=== PATIENT | male | born 1970 | race Caucasian/White ===

== ENCOUNTER 2016-11-22 10:30 | Emergency (ER) | payer BC ==
[2016-11-22] MEDS ORDERED: SODIUM CHLORIDE FLUSH 0.9% 10 ML SYRINGE IVP ONE (11:01)
[2016-11-22] MEDS ORDERED: KETOROLAC 60 MG/2 ML VIAL IVP STA (12:29)
[2016-11-22] MEDS ORDERED: ONDANSETRON 4 MG/2 ML VIAL IVP STA ×2 (12:29→13:36)
[2016-11-22] MEDS ORDERED: SODIUM CHLORIDE 0.9% 1,000 ML IV ONE (12:30)
[2016-11-22 12:31] LABS: BILIRUBIN,URINE NEGATIVE (NEGATIVE)
--- NOTE | 2016-11-22 12:31 | ED Physician Documentation ---
PD HPI ABD PAIN - Stated complaint Stated Complaint: ABD PX - Chief complaint Chief Complaint: Abd Pain - History obtained from History obtained from: Patient, Family - History of Present Illness Timing - onset: Enter time (1899), Last night Timing - duration: Hours Timing - details: Abrupt onset, Still present Quality: Aching, Sharp, Pain Location: RLQ Radiation: Right flank Improved by: Other (nothing) Worsened by: Other (nothing) Associated symptoms: Nausea, Vomiting Similar symptoms before: No diagnosis (symptoms resolved 2 weeks ago.) Recently seen: Not recently seen - Additional information Additional information: 46-year-old male developed acute right lower quadrant pain radiating to his flank yesterday evening. He spent most of the night awake with pain. He has had some nausea and vomiting with the peak of his pain. He has not had fever or chills. He did have an episode similar to this about 2 weeks ago lasted about 2 hours. He has not had pain like this otherwise. He does have a family history of kidney stone. He notes that there were no modifying factors to the pain. Review of Systems Constitutional: denies: Fever Eyes: denies: Decreased vision Ears: denies: Ear pain Nose: denies: Congestion Throat: denies: Sore throat Respiratory: denies: Cough GI: reports: Abdominal Pain, Nausea, Vomiting. denies: Constipation, Diarrhea : denies: Dysuria, Frequency Musculoskeletal: reports: Back pain. denies: Neck pain Neurologic: denies: Generalized weakness, Focal weakness, Numbness PD PAST MEDICAL HISTORY - Past Medical History Past Medical History: No - Past Surgical History Past Surgical History: No - Present Medications Home Medications: Ambulatory Orders Medication Instructions Recorded Confirmed Levothyroxine [Synthroid] 75 mcg PO QDAC 11/22/16 11/22/16 - Allergies Allergies/Adverse Reactions: Allergies Allergy/AdvReac Type Severity Reaction Status Date / Time No Known Drug Allergies Allergy Verified 11/22/16 10:34 - Social History Does the pt smoke?: No Smoking Status: Never smoker PD ED PE NORMAL - Vitals Vital signs reviewed: Yes (Hypertensive) - General General: Alert and oriented X 3, Well developed/nourished, Other - HEENT HEENT: Atraumatic (The patient appears to be in pain with seam sewer tone and flattened affect.), PERRL, EOMI - Neck Neck: Supple, no meningeal sign - Cardiac Cardiac: RRR, No murmur - Respiratory Respiratory: No respiratory distress, Clear bilaterally - Abdomen Abdomen: Soft, Non tender - Back Back: No CVA TTP, No spinal TTP - Derm Derm: Normal color, Warm and dry, No rash - Extremities Extremities: No deformity, No edema - Neuro Neuro: Alert and oriented X 3, No motor deficit, No sensory deficit, Normal speech - Psych Psych: Normal mood, Normal affect Results - Vitals Vitals: Vital Signs - 24 hr 11/22/16 11/22/16 11/22/16 10:31 11:55 13:44 Temperature 36.7 C Heart Rate 55 L 50 L 60 Respiratory 15 18 16 Rate Blood Pressure 163/95 H 170/90 H 152/99 H O2 Saturation 97 11/22/16 15:31 Temperature Heart Rate 52 L Respiratory 16 Rate Blood Pressure 148/88 H O2 Saturation Oxygen O2 Source Room air - Labs Labs: Laboratory Tests 11/22/16 11/22/16 11/22/16 11:06 11:06 12:20 WBC 14.9 H RBC 4.98 Hgb 14.9 Hct 44.2 MCV 88.8 MCH 29.8 MCHC 33.6 RDW 13.1 Plt Count 241 MPV 8.2 Neut # 12.6 H Lymph # 0.8 L [place] # 1.4 H Eos # 0.0 Baso # 0.0 Absolute Nucleated RBC 0.00 Nucleated RBCs 0.0 Sodium 134 L Potassium 3.5 Chloride 100 L Carbon Dioxide 24 Anion Gap 10.0 BUN 21 H Creatinine 1.1 Estimated GFR (MDRD) 72 L Glucose 109 H Calcium 9.0 Total Bilirubin 1.1 H AST 51 H ALT 35 Alkaline Phosphatase 51 Total Protein 7.3 Albumin 4.3 Globulin 3.0 Albumin/Globulin Ratio 1.4 Lipase 48 Urine Color YELLOW Urine Clarity CLEAR Urine pH 6.0 Ur Specific [place] >=1.030 H Urine Protein 30 H Urine Glucose (UA) NEGATIVE Urine Ketones >=80 H Urine Occult Blood TRACE-INTA Urine Nitrite NEGATIVE Urine Bilirubin NEGATIVE Urine Urobilinogen 0.2 (NORMAL) Ur Leukocyte Esterase NEGATIVE Urine RBC 0-5 Urine WBC 0-3 Ur Squamous Epith Cells FEW Squamous Urine Bacteria None Seen Ur Microscopic Review INDICATED Urine Culture Comments NOT INDICATED - Rads (name of study) CT abdomen pelvis without Radiology: Prelim report reviewed (Impression: No evidence of an obstructing renal calculus. Normal CT of the appendix. Low density lesions in the liver that most likely represents a cyst or hemangiomas. Probable benign fibro- osseous lesion in the right proximal femur.), EMP read indepedently, See rad report Procedures - Bedside sono Bedside sono by EMP: With use of bedside ultrasound the right kidney is imaged there is evidence of mild hydronephrosis in the kidney is sonographically nontender. PD MEDICAL DECISION MAKING - ED course Complexity details: reviewed results, re-evaluated patient, considered differential, d/w patient, d/w family ED course: 46-year-old male with acute right lower quadrant pain radiating to his flank has no modifying factors to his pain his pain quality and quantity appear consistent with renal lithiasis. He did have some subtle hydronephrosis on his bedside ultrasound exam. He is administered IV saline and Toradol and has resolution of his pain. He does note that his pain was mostly resolved by the time he had his CT scan. His CT scan did not demonstrate any evidence of stone. I suspect he has passed his stone and the patient is quite comfortable now in the room. I discussed with the patient the natural history of kidney stone and I feel satisfied that we have explored causes of this patient's pain and none exist that are life-threatening Departure - Departure Disposition: 01 Home, Self Care Clinical Impression: Renal colic Condition: Stable Instructions: ED Stone Renal Passed Follow-Up: [facility] [Provider Group] [facility] [Provider Group] Discharge Date/Time: 11/22/16 15:34
[2016-11-22 12:33] LABS: UA w/ MICROSCOPIC CHARGE YES
[2016-11-22 12:36] LABS: BASOPHILS % (AUTO) 0.2 %; HCT - HEMATOCRIT 44.2 % (42.0-52.0); HGB - HEMOGLOBIN 14.9 g/dL (14.0-18.0); LYMPHOCYTES # (AUTO) 0.8 10^3/uL (1.5-3.5); LYMPHOCYTES % (AUTO) 5.6 %; MEAN CORPUSCULAR HEMOGLOBIN 29.8 pg (27.0-31.0); MEAN CORPUSCULAR HGB CONC 33.6 g/dL (32.0-36.0); MEAN CORPUSCULAR VOLUME 88.8 fL (80.0-94.0); MEAN PLATELET VOLUME 8.2 fL (7.4-11.4); MONOCYTES # (AUTO) 1.4 10^3/uL (0.0-1.0); MONOCYTES % (AUTO) 9.3 %; NEUTROPHILS # (AUTO) 12.6 10^3/uL (1.5-6.6); NEUTROPHILS % (AUTO) 84.9 %; RED BLOOD COUNT 4.98 10^6/uL (4.70-6.10); RED CELL DISTRIBUTION WIDTH 13.1 % (12.0-15.0); UNCORRECTED WHITE BLOOD COUNT 14.9 x10^3/uL; WHITE BLOOD COUNT 14.9 x10^3/uL (4.8-10.8)
[2016-11-22] MEDS ORDERED: ONDANSETRON 4 MG/2 ML VIAL ONE ×2 (12:37→13:43)
[2016-11-22] MEDS ORDERED: KETOROLAC 30 MG/ML VIAL ONE (12:37)
[2016-11-22 12:47] LABS: ALBUMIN/GLOBULIN RATIO 1.4 (1.0-2.2); BILIRUBIN,TOTAL 1.1 mg/dL (0.2-1.0); CREATININE 1.1 mg/dL (0.6-1.2); POTASSIUM 3.5 mmol/L (3.5-5.0); TOTAL PROTEIN 7.3 g/dL (6.7-8.2)
[2016-11-22 12:53] LABS: UR CULTURE IF IND NOT INDICATED; WBC,URINE 0-3 /HPF (0-3)
--- NOTE | 2016-11-22 13:48 | CT Preliminary Report ---
Exam: CT Abdomen/Pelvis W/O IMPRESSION: No evidence of an obstructing renal calculus. Normal CT of the appendix. Low-density lesions in the liver that most likely represents a cyst or hemangiomas. Probable benign fibro-osseous lesion in the right proximal femur. [facility] SITE ID: [id number]
--- NOTE | 2016-11-22 13:50 | CT Report ---
EXAM: CT ABDOMEN AND PELVIS (CT KUB) EXAM DATE: 11/22/2016 12:57 PM. CLINICAL HISTORY: RLQ pain to right flank. COMPARISONS: None. TECHNIQUE: Routine axial helical CT imaging was performed through the abdomen and pelvis without IV c ontrast. Reconstructions: Coronal and sagittal. In accordance with CT protocol optimization, one or more of the following dose reduction techniques w ere utilized for this exam: automated exposure control, adjustment of mA and/or KV based on patient s ize, or use of iterative reconstructive technique. FINDINGS: Lung Bases: The lung bases are without evidence of a mass or infiltrate. Solid Organs: At least 5 low density lesions are seen within the liver. The largest is in segment 3 ( image 27 series 3). It measures 1.1 cm. These most likely represent cysts or hemangiomas. The spleen, pancreas, and adrenal glands are normal in appearance. Kidneys are without evidence of hy dronephrosis, hydroureter or nephrolithiasis. No bladder calculi are identified. Peritoneal Cavity: The appendix is normal in appearance. There are no dilated loops of bowel to sugge st the presence of an obstruction. There is no evidence of diverticulosis or diverticulitis Pelvic Organs: Calcifications are seen within the pelvis that most likely represent phleboliths. No b ladder calculi are identified. No mass or cyst is seen within the pelvis. Vasculature: There is no evidence of an abdominal aortic aneurysm. Other: There is a focal sclerotic lesion in the right proximal femur at the level of the intertrochan teric region. It measures 10 x 6 mm (image 40 of series 5 and image 82 series 3). This most likely re presents a benign fibro-osseous lesion. IMPRESSION: No evidence of an obstructing renal calculus. Normal CT of the appendix. Low-density lesions in the liver that most likely represents a cyst or hemangiomas. Probable benign fibro-osseous lesion in the right proximal femur. [facility] Referring Provider Line: [phone] SITE ID: [id number]
[2016-11-22 15:32] VITALS: BP 148/88
== END 2016-11-22 15:34 | disposition home or self-care (01) ==
LOC: ED 10:30
DX: N23 Unspecified renal colic (principal); Z84.1 Family history of disorders of kidney and ureter
CPT/HCPCS: 36415; 74176; 80053; 81001; 81003; 83690; 85025; 87086; 96374; 96375; 96376; 99284

== ENCOUNTER 2021-10-27 11:17 | Outpatient (CLI) | payer BC ==
--- NOTE | 2021-10-27 15:32 | XRAY Report ---
PROCEDURE: Lumbar Spine 2 View INDICATIONS: LOW BACK PAIN TECHNIQUE: 3 views of the lumbar spine were acquired. COMPARISON: None. FINDINGS: Bones: 5 [id number] vertebrae are present. There is normal bony alignment. Degenerative endplat e changes at L5-S1 level is seen. No vertebral body compression fractures. No suspicious bony lesio ns. Soft tissues: Overlying bowel gas pattern is normal. No suspicious soft tissue calcifications. IMPRESSION: Degenerative disc disease at L5-S1 level. No acute compression fracture or spondylolisth esis. Reviewed by: Sushant Gómez MD on 10/27/2021 3:31 PM PDT Approved by: Sushant Gómez MD on 10/27/2021 3:31 PM PDT Station ID: [id number]
== END 2021-10-27 11:18 | disposition home or self-care (01) ==
LOC: DI.S 11:17
PROVIDERS: ATTEND Nurse Practitioner Family
DX: M51.37 Other intervertebral disc degeneration, lumbosacral region (principal)

== ENCOUNTER 2021-11-06 09:53 | Outpatient (CLI) | payer BC ==
[2021-11-06 10:34] VITALS: BP 102/78
--- NOTE | 2021-11-06 10:34 | SLEEP CARE CONSULTATION ---
Information from patient questionnaire entered by Bianca Pabon MA. I have reviewed and concur with the information entered by Bianca Pabon MA. This document represents the service I personally performed and the decisions made by , Nikki Kendall ARNP. History of Present Illness Service Date and Time: 11/06/2021 0953 Reason for Visit: New patient Chief Complaint: reports: Unrefreshed sleep, Snoring, Fatigue Date of Onset: "MANY YEARS" Usual bedtime: 2200 - 2300 Time it takes to fall asleep: 30MIN Snores at night: Yes Observed to quit breathing while asleep: Yes Sleeps alone due to snoring: No Number of times waking at night: 2 - 3 Reasons for waking at night: reports: Bathroom, Other Toss, Turn, or Twitch while sleeping: Yes Recalls having dreams: Yes Usually gets out of bed at: 0630 Feels refreshed in the morning: No Morning headache: Yes (RELIEVED WITH COFFEE) Sleepy or fatigued during the day: Yes Ever fallen asleep while driving: No Takes day naps: No Dreams during day naps: No Prior sleep studies: No Additional HPI information: I had the pleasure of seeing SAIRA ROWE today regarding the possibility of him having a sleep disorder. His current complaints are fatigue, snoring and unrefreshed sleep. He has been getting some "collagen" laser treatment by his dentist to reduce snoring and it does seem to be improving. He does not wake up feeling rested and is tired during the day. He wakes up with headaches 1-2 times a a week, they last about 1-1.5 hrs. He only wakes up 2-3 times a night, mainly for bad dreams or bathroom. He falls asleep within 5 - 30 minutes. - Parasomnia Symptoms Ever been unable to move upon waking from sleep: No Walks in sleep: No Talks in sleep: No Ever acted out dreams in sleep: No Ever felt weak in the knees when startled or emotional: No Bothered by creepy, crawly, restless sensations in legs: No Problems with memory or concentration: Yes (Memory getting worse; concentration too) Subjective Initial [place] Sleepiness Scale score: 7 (10/2021) Past Medical History Past Medical History: reports: Anxiety, Other (Alix's; Celiac disease) Social History The patient's occupation is a SE. Patient is and lives in . Have you smoked in the past 12 months: No Cigarettes per day (20/pack): 0 Alcohol use: No Caffeine use: Yes Caffeine amount and frequency: 2 CUPS COFFEE IN AM; ENERGY DRINKS IN PM Family History Family history of sleep disordered breathing: Yes Family Hx Sleep Apnea: Sibling: Sleep apnea - Treated Allergies and Home Medications Drug allergies reviewed: Yes (NKDA) Home medication list reviewed: Yes Allergy and home medication list: Allergies No Known Drug Allergies Allergy (Verified 11/22/16 10:34) Medications: Levothyroxine 75 mcg daily Review of Systems Cardiovascular: denies: high blood pressure Gastrointestinal: denies: heartburn Neurological: reports: head trauma (couple concussions). denies: headaches Ear/Nose/Throat: reports: nasal congestion. denies: tonsillectomy, wisdom teeth removed Endocrine: reports: thyroid disease, sluggishness, too hot or cold Musculoskeletal: reports: joint pain, back pain Immunologic: reports: sneezing, allergies to food or environment (hayfever; wh eat) Physical Exam Vital signs obtained and entered by: TINO PAREDES Blood Pressure: 102/78 Cuff size: regular Heart Rate: 68 O2 Saturation: 96 Height: 5 ft 11.5 in Weight: 184 lb 6 oz Body Mass Index: 25.3 BMI Classification: Overweight Nostrils: patent to airflow Mouth and throat: narrow oropharynx Soft palate: long Hard palate: normal Uvula: normal, long Uvula visualization: 25% Mallampati Class III Tongue: enlarged in size with teeth trejo on lateral edges Tonsils: small Neck: normal w/o lymphadenopathy or thyromegaly Heart: regular rate and rhythm Lungs: clear bilaterally Impression and Plan 1. Suspected Obstructive Sleep Apnea-Hypopnea Syndrome, as suggested by a history of loud and irregular snoring, observed cessation of breath while asleep, morning headache, unrefreshed sleep and cognitive impairment. Narrow oropharynx and obesity are common predisposing factors for obstructive sleep apnea-hypopnea syndrome. I recommend proceeding to polysomnography to confirm the diagnosis and to assess severity. If the patient has significant sleep disordered breathing, a manual CPAP titration study will also be performed to find the optimal treatment pressure. I informed the patient of what the sleep studies involve and after some discussion, obtained agreement to proceed. The pathophysiology of obstructive sleep apnea-hypopnea syndrome was discussed with the patient and health risks of cardiovascular and cerebrovascular disease if no t treated. Risks of drowsy driving discussed in detail and patient advised to avoid long distance driving and to assembler for puller over machine at the first sign of drowsiness. Patient agreed to plan. * Schedule polysomnography * Avoid long distance driving or driving when feeling sleepy. * Avoid alcohol, sedative and muscle relaxant around bedtime. * Attempt to lose weight. * Review instructions provided by trained office staff on how to prepare for the sleep study. * Return for follow-up after sleep study completed. Counseling Topics: Weight loss health impact Visit Type: In Office Time Spent with Patient (minutes): 32 Provider Statement: I spent 100% of the Face to Face Visit with the patient with greater than 50% spent counseling the patient and coordination of care.
== END 2021-11-06 09:54 | disposition home or self-care (01) ==
LOC: SC 09:53
PROVIDERS: ATTEND Nurse Practitioner Family
DX: R06.83 Snoring (principal); G47.8 Other sleep disorders; R06.81 Apnea, not elsewhere classified; R51.9 Headache, unspecified; R53.83 Other fatigue; E66.3 Overweight; Z68.25 Body mass index [BMI] 25.0-25.9, adult
CPT/HCPCS: 99203; 99212

== ENCOUNTER 2021-11-24 12:30 | Outpatient (CLI) | payer BC | END 2021-11-24 12:31 | disposition home or self-care (01) | LOC: SC 12:30 | PROVIDERS: ATTEND Nurse Practitioner Family | DX: G47.33 Obstructive sleep apnea (adult) (pediatric) (principal); R09.02 Hypoxemia | CPT/HCPCS: 95806 ==

== ENCOUNTER 2021-12-09 10:24 | Outpatient (CLI) | payer BC ==
[2021-12-09 10:59] VITALS: BP 112/74
--- NOTE | 2021-12-09 10:59 | SLEEP CARE CONSULTATION ---
Information from patient questionnaire entered by Bianca Pabon MA. I have reviewed and concur with the information entered by Bianca Pabon MA. This document represents the service I personally performed and the decisions made by , Nikki Kendall ARNP. History of Present Illness Service Date and Time: 12/09/2021 1024 Initial [place] Sleepiness Scale score: 7 (10/2021) Current [place] Sleepiness Scale score: 8 Additional HPI information: SAIRA ROWE returns for follow up and results of the recently performed home sleep study. I explained the pathophysiology behind obstructive sleep apnea. We then spent quite a bit of time discussing different treatment options. For mild obstructive sleep apnea, surgery and oral appliance are alternatives to nasal CPAP therapy but in moderate or severe cases, nasal CPAP is the most effective and reliable treatment. Because apnea is primarily in supine position, then positional management therapy could be effective. Methods discussed such as positioning with pillows to prevent supine sleep. I reviewed the impact of weight changes on sleep apnea and strongly recommended losing weight. After some discussion, the patient opted to go with the nasal CPAP therapy. Nasal autoCPAP set at 4-15 cmH20 will be ordered with rationale explained. A manual titration study will be ordered if unable to find optimal pressure with office adjustments. I explained how CPAP machine works and what to expect when using the machine. Using CPAP every night in order to get used to it was emphasized. Patient advised to put CPAP mask on before getting into bed so as not to fall asleep without CPAP. To assist acclimation to CPAP use, it could also be used for a short time during day while reading or watching TV. The patient was instructed to call the CPAP supplier to discuss any mechanical problem that may occur. If the mask given is uncomfortable or is difficult to keep on through the night even with adjustment, contact the CPAP supplier as many will replace with another mask style if notified before 30 days. If snoring or perceives is not getting enough air or too much air from the machine, notify this office. Patient does not drink alcohol. Patient was cautioned about risks of drowsy driving until sleepiness symptoms resolve. Patient denies drowsy driving. Sleep Study - Results Prior sleep studies: No Polysomnography/Home Sleep Study results: Physician Impression: The quality of the study is good. The length of the study is adequate (> 240 minutes). Please also see the tabulated and graphic data. 1. Obstructive Sleep Apnea-Hypopnea (ICD-10 G47.33), moderate, with an AHI of 18.5/hr and sung SaO2 of 87%. During the study, the patient had 122 apneas (122 obstructive, 0 central, 0 mixed) and 11 hypopneas. The longest episode lasted 54.0 seconds. The respiratory events occurred more frequently during supine sleep (supine AHI was 77.8 and non-supine, 17.72). 2. Hypoxemia (ICD-10 R09.02), mild, with the lowest oxygen saturation of 87 % and 0.6 minutes with SaO2 under 90%. Baseline oxygen saturation was normal (Average oxygen saturation was 95%). Allergies and Home Medications Drug allergies reviewed: Yes (NKDA) Home medication list reviewed: Yes (no changes) Allergy and home medication list: Allergies No Known Drug Allergies Allergy (Verified 11/22/16 10:34) Review of Systems Review of systems same as previous: Yes (no changes) Physical Exam Vital signs obtained and entered by: TINO HANEY Blood Pressure: 112/74 Cuff size: regular Heart Rate: 72 O2 Saturation: 97 Height: 5 ft 11.5 in Weight: 185 lb 6.4 oz Body Mass Index: 25.4 BMI Classification: Overweight Impression and Plan 1. Obstructive Sleep Apnea-Hypopnea Syndrome, moderate, with lowest oxygen saturation of 87%. Obviously this is the cause of the patients symptoms of unrefreshed sleep, and excessive daytime sleepiness. Positive pressure therapy could benefit anxiety. As mentioned above, the patient will be started on nasal autoCPAP therapy with pressure set at 4-15 cmH2O. Compliance guidelines also reviewed. A copy of compliance guidelines will be given for reference at check out. Because the apnea is more severe supine, I instructed to avoid sleeping supine using pillow positioning until able to start CPAP use. * Nasal auto CPAP therapy, pressure at 4-15 cm H2O. * Attempt to lose weight. * Avoid alcohol consumption near bedtime. * Avoid supine sleep until using CPAP. * The patient is again cautioned about driving until sleepiness completely resolves. * Return one month after CPAP obtained. I will assess response to therapy and compliance at that time. Counseling Topics: Weight loss health impact Visit Type: In Office Time Spent with Patient (minutes): 22 Provider Statement: I spent 100% of the Face to Face Visit with the patient with greater than 50% spent counseling the patient and coordination of care.
== END 2021-12-09 10:25 | disposition home or self-care (01) ==
LOC: SC 10:24
PROVIDERS: ATTEND Nurse Practitioner Family
DX: G47.33 Obstructive sleep apnea (adult) (pediatric) (principal); E66.3 Overweight; Z68.25 Body mass index [BMI] 25.0-25.9, adult
CPT/HCPCS: 99212; 99213

== ENCOUNTER 2022-06-15 09:41 | Outpatient (CLI) | payer BC ==
--- NOTE | 2022-06-15 13:27 | Ultrasound Report ---
PROCEDURE: Abdomen Limited INDICATIONS: RUQ PAIN TECHNIQUE: Real-time focused scanning was performed of the abdomen, with image documentation. COMPARISONS: None. FINDINGS: Liver: Liver is normal in size and homogeneous in echotexture. Benign hepatic cysts present. Gallbladder: Unremarkable. Biliary ducts: Intrahepatic bile ducts are non-dilated. Extrahepatic bile duct caliber measures 4 m m. Normal is 6-7 mm or less in diameter, or 10 mm or less post-cholecystectomy. Pancreas: Visualized portions of the pancreas are sonographically normal. Right kidney: There is a exophytic protrusion on the superior pole of the right kidney measuring 3.2 x 2.3 x 5.2 cm. Right kidney measures 11.1 cm. Aorta: Visualized aorta is normal in caliber at less than 3 cm. IVC: Intrahepatic inferior vena cava is patent. Miscellaneous: No free abdominal fluid. IMPRESSION: Exophytic lobulation of the right kidney measuring 3.2 x 2.3 x 5.2 cm. This could just represent a no rmal lobulation, but solid mass on excluded. Consider MRI or CT (renal mass protocol). Normal gallbladder. Reviewed by: Chato Razo on 06/15/2022 1:26 PM PDT Approved by: Chato Razo on 06/15/2022 1:26 PM PDT Station ID: [id number]
== END 2022-06-15 09:42 | disposition home or self-care (01) ==
LOC: DI 09:41
PROVIDERS: ATTEND Nurse Practitioner Family
DX: R10.11 Right upper quadrant pain (principal)

== ENCOUNTER 2022-06-28 12:36 | Outpatient (CLI) | payer BC ==
[~2022-06-28 12:36] MED LIST: GADOBUTROL 10 MMOL/10 ML VIAL ONE
[2022-06-28] MEDS ORDERED: GADOBUTROL 10 MMOL/10 ML VIAL IVP ONE (14:31)
--- NOTE | 2022-06-28 14:59 | MRI Report ---
PROCEDURE: ABDOMEN W/WO INDICATIONS: ABS PAIN CONTRAST: gadavist 8.4ml TECHNIQUE: Coronal ultra fast SE, axial 2D spoiled GE in- and [id number]; axial breath-hold T2 fast SE. Dynam ic axial ultra fast GE during the administration of contrast; post-contrast coronal ultra fast GE or 2D spoiled GE with fat saturation from the hepatic dome to the iliac crests. Optional diffusion weig hted imaging and ADC may be performed. COMPARISON: CT 11/22/2016, ultrasound 06/05/2022 FINDINGS: Image quality: Good Lower chest: No basal effusions. There might be a lung nodule in the right lower lobe versus thick at electasis () measuring 1 cm. Heart size is normal. No hiatal hernia. Solid organs: There are multiple liver cysts. Gallbladder is underdistended and unremarkable. No path ologic biliary ductal dilation or pancreatic ductal dilation. No splenomegaly. No adrenal nodules. Compared to 2017 imaging, there is new focal cortical thinning and scarring in the right lower pole. No enhancing discrete mass is identified. No hydronephrosis. Small renal cysts are present. Vessels and lymph nodes: Patent renal veins. The portal vein is patent as well. No abdominal aortic a neurysm. No pathologic adenopathy by size criteria. Bowel and peritoneum: No evidence of small bowel obstruction or pathologic ascites. Body wall: Unremarkable Bones: No acute or suspicious osseous finding. IMPRESSION: Compared to 2017 imaging, new focal scarring in the right lower renal pole, without enhancing mass. T his may be due to prior infection or infarct. No definite acute abdominal finding. Incidental note of a possible right lower lobe lung nodule () measuring about 1 cm. Consider non emergent chest CT to further evaluate. Lungs are not well evaluated on MRI. Reviewed by: Henrique Boland MD on 06/28/2022 2:58 PM PDT Approved by: Henrique Boland MD on 06/28/2022 2:58 PM PDT Station ID: [id number]
== END 2022-06-28 12:37 | disposition home or self-care (01) ==
LOC: DI 12:36
PROVIDERS: ATTEND Nurse Practitioner Family
DX: R93.89 Abnormal findings on diagnostic imaging of other specified body structures (principal)
CPT/HCPCS: 74183; A9585

== ENCOUNTER 2022-07-17 08:44 | Outpatient (CLI) | payer BC ==
--- NOTE | 2022-07-17 09:20 | CT Report ---
PROCEDURE: CHEST WO INDICATIONS: LUNG NODULE TECHNIQUE: Noncontrast 1mm axial images were acquired from the pulmonary apices to the posterior costophrenic an gles. Axial 5 mm soft tissue kernel reconstructions were performed as well as 8 mm axial MIP and cor onal and sagittal 5 mm reformations. For radiation dose reduction, the following was used: automate d exposure control, adjustment of mA and/or kV according to patient size. COMPARISON: None FINDINGS: Image quality: Excellent. Lungs and pleura: No consolidation. No pleural effusions. No pneumothorax. No suspicious pulmonary n odules which require follow up. Mediastinum: Heart size is normal. Calcification of the coronary vasculature. No pericardial effusion s. No mediastinal adenopathy by size criteria. No large vessel abnormality. Chest wall and lower neck: Thyroid is unremarkable. No axillary or supraclavicular adenopathy by size . Bones: No aggressive osseous abnormality. Upper Abdomen: Unremarkable. IMPRESSION: No acute process. No evidence of malignancy. Reviewed by: Yusuf Salcedo MD on 07/17/2022 8:18 AM EN[facility] Approved by: Yusuf Salcedo MD on 07/17/2022 8:18 AM ENEDELIA Station ID: [id number]
== END 2022-07-17 08:45 | disposition home or self-care (01) ==
LOC: DI 08:44
PROVIDERS: ATTEND Nurse Practitioner Family
DX: R91.1 Solitary pulmonary nodule (principal)

== ENCOUNTER 2023-01-27 07:00 | Outpatient (CLI) | payer BC ==
--- NOTE | 2023-01-27 12:45 | XRAY Report ---
PROCEDURE: Knee 3 View RT INDICATIONS: RIGHT KNEE EFFUSION TECHNIQUE: 3 views of the knee(s) were acquired. COMPARISON: None. FINDINGS: Bones: No fractures or dislocations. No suspicious bony lesions. Tricompartmental joint space daina rowing. Mild osteophytic lipping of the medial tibiofemoral and patellofemoral compartments. Soft tissues: No knee joint effusion. No suspicious soft tissue calcifications or masses. IMPRESSION: No acute bony abnormality. No knee joint effusion. Mild tricompartmental osteoarthritis. Kellgren-Bud scale of osteoarthritis: 1-2. Reviewed by: Chato Razo on 01/27/2023 12:44 PM PST Approved by: Chato Razo on 01/27/2023 12:44 PM PST Station ID: [id number]
== END 2023-01-27 23:59 | disposition home or self-care (01) ==
LOC: DI.S 07:00
PROVIDERS: ATTEND Physician Assistant
DX: M17.11 Unilateral primary osteoarthritis, right knee (principal)